=== PATIENT | female | born 1955 | race Caucasian/White ===

== ENCOUNTER → 2016-12-15 | Outpatient (CLI) | payer OTHER | LOC: FIMAGING 11:49 | DX: Z12.31 Encounter for screening mammogram for malignant neoplasm of breast (principal); Z80.3 Family history of malignant neoplasm of breast | CPT/HCPCS: G0202 ==

== ENCOUNTER 2017-09-04 12:11 | Emergency (ER) | payer OTHER ==
[2017-09-04 12:32] VITALS: RESP 17
--- NOTE | 2017-09-04 13:04 | EDPHY ---
H & P Time Seen by Provider: 09/04/17 12:55 HPI/ROS: CHIEF COMPLAINT: Right knee pain HISTORY OF PRESENT ILLNESS: 11:30 a.m. patient was walking on the stairs and suddenly felt sharp pain in the back of her right knee which is fine at rest but very painful when she tries to walk on it or extend her knee. REVIEW OF SYSTEMS: No laceration. No weakness or numbness in the foot ring. PAST MEDICAL HISTORY: Hypertension on thiazide Social history: Orthopedist in [place] had recommended replacement of her left knee. General Appearance: Alert and conversant, cooperative. No effusion appreciated. No bony tenderness. Stable to varus and valgus stress, anterior and posterior drawer, Marlon's negative. Normal motor and sensory in the right foot. She has severe pain with resisted extension but can flex normally. She has pain on anterior and posterior drawer testing. Compartments are soft. Emergency Department course/MDM: X-ray personally interpreted as negative. Possible small effusion. Likely muscle tear, possible muscle strain, doubt infection or septic joint or DVT. Possibility of Moay cyst also considered. Warned the patient she could also have an internal knee injury such as ligamentous or cartilage Knee immobilizer, will follow up with her orthopedist early next week. Nonsteroidal and ice and elevation. Smoking Status: Never smoked Constitutional: Initial Vital Signs Temperature (C) 36.9 C 09/04/17 12:27 Heart Rate 89 09/04/17 12:27 Respiratory Rate 17 09/04/17 12:27 Blood Pressure 143/84 H 09/04/17 12:27 O2 Sat (%) 97 09/04/17 12:27 O2 Delivery Mode Room Air Allergies/Adverse Reactions: No Known Allergies Allergy (Unverified 09/04/17 12:27) Home Medications: Medication Instructions Recorded HCTZ (*) 09/04/17 MDM/Departure - MDM Imaging Results: Imaging Impressions Knee X-Ray 09/04/17 13:03 Impression: Knee sprain. - Depart Disposition: Home, Routine, Self-Care Clinical Impression: Right knee injury Qualifiers: Encounter type: initial encounter Qualified Code(s): S89.91XA - Unspecified injury of right lower leg, initial encounter Condition: Good Instructions: Knee Immobilizer (ED) Additional Instructions: Please see your orthopedic surgeon or Dr. Erickson's office early next week. Crutches and knee immobilizer and limited activity over the weekend. Oral ibuprofen 600 mg every 8 hr for the next 2-3 days as needed for pain. Referrals: Jessica Bolden MD [Primary Care Provider] - As per Instructions Tad Almendarez MD [Medical Doctor] - As per Instructions
[2017-09-04 14:08] VITALS: BP 148/93; PULSE 71; TEMP 97.9; O2SAT 94
== END 2017-09-04 14:08 | disposition home or self-care (01) ==
DX: S89.91XA Unspecified injury of right lower leg, initial encounter (principal); I10 Essential (primary) hypertension; X58.XXXA Exposure to other specified factors, initial encounter; Y92.89 Other specified places as the place of occurrence of the external cause; Y93.01 Activity, walking, marching and hiking
CPT/HCPCS: L1830

== ENCOUNTER → 2018-01-22 | Outpatient (CLI) | payer OTHER | LOC: FIMAGING 13:54 | PROVIDERS: ATTEND Family Medicine | DX: Z12.31 Encounter for screening mammogram for malignant neoplasm of breast (principal); Z80.3 Family history of malignant neoplasm of breast ==